=== PATIENT | female | born 1955 | race Caucasian/White ===

== ENCOUNTER 2017-01-11 18:19 | Emergency (ER) | payer BC ==
--- NOTE | 2017-01-11 19:04 | ER PHYSICIAN DOCUMENTATION ---
Physician Documentation [facility] Name:Cori Toscano Age:61 yrs Sex:Female :1955 Arrival Date:01/11/2017 Time:18:19 Bed3 Private MD: Manuel Mcbride Disposition: 01/11/17 18:54 Discharged to Home/Self Care. Impression: Head Laceration. - Condition is Good. - Discharge Instructions: LACERATION, Scalp. - Medical Reconciliation form form. - Follow up: Private Physician; When: 1 week; Reason: Staple/Suture removal. - Problem is new. - Symptoms have improved. HPI: 01/11 18:52 This 61 yrs old Female presents to ER via Private Vehicle with complaints of sc Laceration To Head. 18:52 The patient has a laceration related to: hit tree branch with head. The laceration(s) sc is(are) located on the top of head. Onset: The symptom(s)/episode began/occurred 1 hour(s) ago. Associated signs and symptoms: The patient has no apparent associated signs or symptoms. The patient has not experienced similar symptoms in the past. Historical: - Allergies: Zinc; Nickel; - Home Meds: 1. citalopram oral 2. Crestor oral - PMHx: ANXIETY; - Tetanus: < 10 years. - Ebola Screening: : Patient denies exposure to infectious person. Patient denies travel to an Ebola-affected area in the 21 days before illness onset. . - Social history: Smoking status: Patient states was never smoker of tobacco. Patient uses alcohol Patient/guardian denies using marijuana. ROS: 18:53 Constitutional: Negative for fever, chills, and weight loss. sc Eyes: Negative for injury, pain, redness, and discharge. ENT: Negative for injury, pain, and discharge. Neck: Negative for injury, pain, and swelling. Cardiovascular: Negative for chest pain, palpitations, and edema. 18:53 Neuro: Negative for headache, weakness, numbness, tingling, and seizure. sc 18:53 Skin: Positive for laceration(s). Exam: Constitutional: This is a well developed, well nourished patient who is awake, alert, and in no acute distress. Eyes: Pupils equal round and reactive to light, extra-ocular motions intact. Lids and lashes normal. Conjunctiva and sclera are non-icteric and not injected. Cornea within normal limits. Periorbital areas with no swelling, redness, or edema. ENT: Nares patent. No nasal discharge, no septal abnormalities noted. Tympanic membranes are normal and external auditory canals are clear. Oropharynx with no redness, swelling, or masses, exudates, or evidence of obstruction, uvula midline. Mucous membranes moist. 18:53 Neck: Trachea midline, no thyromegaly or masses palpated, and no cervical sc lymphadenopathy. Supple, full range of motion without nuchal rigidity, or vertebral point tenderness. No meningismus. 18:53 Head/face: Noted is a laceration(s). 18:54 Musculoskeletal/extremity: Exam is negative for sc 18:55 Skin: Exam negative for acute changes. id Vital Signs: 18:32 BP 136 / 75; Pulse 59; Pulse Ox 92% on R/A; Pain 1/10; st Laceration: 18:53 Wound Repair of 1cm ( 0.4in ) subcutaneous laceration to top of head. Linear shaped.. sc Distal neuro/vascular/tendon intact. Anesthesia: Wound infiltrated with 2 mls of 2% lidocaine w/ Epi. Wound prep: Simple cleansing by patient care technician. Skin closed with 3 1-0 Patton using Staple gun. Dressed with Bacitracin. Patient tolerated well. MDM: 18:36 Patient medically screened. id 18:54 Differential diagnosis: superficial laceration. Data reviewed: vital signs, nurses id notes, and as a result, I will discharge patient. Dispensed Medications: No medications were administered Signatures: Elizabeth Valentin RN RN st Chew, Scott, MD MD id
--- NOTE | 2017-01-11 19:04 | ER NURSING DOCUMENTATION ---
Nurse's Notes [facility] Name:Cori Toscano Age:61 yrs Sex:Female :1955 Arrival Date:01/11/2017 Time:18:19 Bed3 Private MD: Diagnosis:Head Laceration Presentation: 01/11 18:30 Presenting complaint: Patient states: pt walked into a branch while hiking and now has st a small head lac. pt denies any headache, vision changes or LOC. Transition of care: patient was not received from another setting of care. Complicating Factors: There are no complicating factors for this patient. 18:30 Acuity: JEANNE 3 st 18:30 Method Of Arrival: Private Vehicle st Triage Assessment: 18:32 General: Appears in no apparent distress, Behavior is cooperative. Pain: Complains of st pain in top of head Pain currently is 1 out of 10 on a pain scale. Neuro: No deficits noted. Injury Description: Laceration sustained to top of head is 0.5 to 2.5 cm long, bleeding moderately. Historical: - Allergies: Zinc; Nickel; - Home Meds: 1. citalopram oral 2. Crestor oral - PMHx: ANXIETY; - Tetanus: < 10 years. - Ebola Screening: : Patient denies exposure to infectious person. Patient denies travel to an Ebola-affected area in the 21 days before illness onset. . - Social history: Smoking status: Patient states was never smoker of tobacco. Patient uses alcohol Patient/guardian denies using marijuana. Screenin:33 Infectious Disease Risk None. Abuse screen: Denies threats or abuse. Denies injuries st from another. pt feels safe at home. Nutritional screening: No deficits noted. Vital Signs: 18:32 BP 136 / 75; Pulse 59; Pulse Ox 92% on R/A; Pain 1/10; st ED Course: 18:21 Patient arrived in ED. ama 18:30 Elizabeth Valentin, RN is Primary Nurse. st 18:[address] 18:33 Valuables Remains with patient Patient has correct armband on for positive st identification. Bed in low position. 18:36 Manuel Mathur MD is Attending Physician. sc 18:54 Assist Provider Assist provider with laceration repair using kacy. Set up tray. st Performed by Manuel Mathur MD Patient tolerated well. Administered Medications: No medications were administered Outcome: 18:54 Discharge ordered by MD. rucker 19:[address] 19:00 Condition: improved 19:00 Instructed on discharge instructions, follow up and referral plans. wound care. 19:03 [address] st 01/12 09:26 Discharge F/U Call: Unable to reach: no answer st Signatures: Elizabeth Valentin RN Manuel Sosa MD MD sc Averdick, Andrew, Reg Reg ama
== END 2017-01-11 19:03 | disposition home or self-care (01) ==
LOC: ER 18:19
DX: S01.01XA Laceration without foreign body of scalp, initial encounter (principal); W22.8XXA Striking against or struck by other objects, initial encounter; Y92.838 Other recreation area as the place of occurrence of the external cause; Y93.01 Activity, walking, marching and hiking; Z79.899 Other long term (current) drug therapy
CPT/HCPCS: 12001; 99282